=== PATIENT | male | born 1990 | race Caucasian/White ===

== ENCOUNTER 2016-04-25 20:08 | Emergency (ER) | payer MEDICAID, OTHER ==
[~2016-04-25] VITALS: Ht 175.3 cm; Wt 72.6 kg
[~2016-04-25 20:08] MED LIST: DEXTROSE (50%) 50ML SYRG IV ONE; EPINEPHrine HCL 1 MG/10 ML SYRG IV ONE; SODIUM BICARBONATE 8.4% INJ 50ML SYRINGE IV ONE
== END 2016-04-26 00:53 | disposition expired ==
LOC: EDBD 20:08 → ER 20:10 → EDBD 20:10 → EDUNIT# 20:10 → ER 04-26 00:53
DX: I46.9 Cardiac arrest, cause unspecified (principal); S82.201B Unspecified fracture of shaft of right tibia, initial encounter for open fracture type I or II; S82.401B Unspecified fracture of shaft of right fibula, initial encounter for open fracture type I or II; V09.9XXA Pedestrian injured in unspecified transport accident, initial encounter; Y93.89 Activity, other specified; Y99.8 Other external cause status; Y92.488 Other paved roadways as the place of occurrence of the external cause
CPT/HCPCS: 31500; 92950; 99285; J0171; J7042